=== PATIENT | male | born 1930 | race Caucasian/White ===

== ENCOUNTER 2016-05-07 14:09 | Inpatient (IN) | payer OTHER ==
[~2016-05-07] VITALS: Ht 172.7 cm; Wt 85.3 kg
--- NOTE | ~2016-05-07 | H ---
[facility] [place] [address] HISTORY AND PHYSICAL Name: MARCIA MRAY Room #: 427-P ADM IN M.R.#: [id number] Admission: 05/07/16 Attend Phys: Pelon Naranjo MD Discharge: Date of : 30 Report #: [id number] THIS REPORT FOR: //name// CC: Landy Faria TYPE OF DICTATION: Admission H and P after [id number] encounter, I did see the patient and examined him on the day of admission. CHIEF COMPLAINT: Electrolyte abnormality. HISTORY OF PRESENT ILLNESS: An 86-year-old male with multiple medical problems, was sent by his primary care doctor to the ER because the patient was on excessive diuretics and his electrolyte seems to be very weird like his hypokalemic, hyponatremic, and there is an acute renal failure also. The patient has a history of paroxysmal AFib. He is not sure about that, but he is not on any anticoagulation or anything else for that, but his EKG did show some AFib. The patient denies any chest pain or short of breath. He seems to be very comfortable. No current complaints. REVIEW OF SYSTEMS: Except that mentioned in HPI, all other systems are negative. PAST MEDICAL HISTORY: Includes: 1. Hypertension. 2. Peripheral neuropathy. 3. Hypothyroidism. 4. B12 deficiency. 5. Gout. 6. History of paroxysmal AFib. 7. CKD 3. FAMILY HISTORY: Noncontributory. SOCIAL HISTORY: He is not a smoker, drinker, or drug abuser. SURGICAL HISTORY: There is no surgical history. PHYSICAL EXAMINATION: GENERAL: He is alert, oriented, not in acute distress. VITAL SIGNS: Temperature 36.7, pulse 62, respirations 16, blood pressure 106/59. HEENT: PERRLA. Intact extraocular muscles. No icterus. NECK: Supple, no JVD, no bruit, no thyroid. CHEST: Good air entry in both sides. Normal respiratory effort. CARDIOVASCULAR: Irregular irregularity. No murmur, rub, or gallop. ABDOMEN: Lax, soft, nontender, positive bowel sounds, no organomegaly [address] [address] HISTORY AND PHYSICAL Name: MARCIA MARY Room #: 427-P [place] IN M.R.#: [id number] Admission: 05/07/16 Attend Phys: Pelon Naranjo MD Discharge: Date of : 30 Report #: [id number]. EXTREMITIES: No cyanosis, clubbing, or edema. NEUROLOGIC: Cranial nerves 2-12 are intact. No focal neurological signs. LABORATORY DATA: White count 7.5, hemoglobin 12.9, hematocrit 37.6, platelets 112. Sodium 126, potassium 2.6, chloride 82, carbon dioxide 32, anion gap 12, BUN 84, creatinine 3.3, glucose 123, calcium 10.2, magnesium 2.5. Chest x-ray did show some left lower lobe nodularity ___. EKG did show AFib, but slow rate. ASSESSMENT AND PLAN: 1. Hyponatremia. Sodium is 126, so we are going to admit the patient to telemetry, and in the same time, we are going to give him IV fluids in the form of normal saline and follow his sodium level in the morning. 2. Hypokalemia. His potassium currently is 2.6. I think this is secondary to excessive diuresis. We are going to replace it per protocol. 3. Acute renal failure, most probably acute tubular necrosis. Creatinine is up to 3.3 from baseline of 1.8. We are going to hydrate him and check his kidney function in the morning. 4. History of atrial fibrillation. The patient is currently on AFib, but rate is controlled, so we are going to discuss with him the probability of anticoagulation and his cardiac enzymes will be checked and EKG will be checked for 3 times. 5. Left lower lobe nodule most suspicious of that. We are going to have a CT of the chest and reevaluate the patient. The patient is full code. The patient is going to be on DVT and GI prophylaxis. <ELECTRONICALLY SIGNED> By: Pelon Naranjo MD 05/10/16 1700 1555 [id number] Pelon Naranjo MD /nt
--- NOTE | ~2016-05-07 | HC ---
[facility] [place] [address] CONSULTATION Name: MARCIA MARY Room #: 427-P ADM IN M.R.#: [id number] Admission: 05/07/16 Attend Phys: Pelon Naranjo MD Discharge: Date of : 30 Report #: [id number] THIS REPORT FOR: //name// CC: Pelon Naranjo Martine Faria DATE OF SERVICE: 05/12/2016 TYPE OF REPORT: Cardiology consultation. INDICATION: Atrial fibrillation with a rapid rate. HISTORY OF PRESENT ILLNESS: This is an 86-year-old gentleman who was admitted for electrolyte abnormalities. He had increased lower extremity edema and was started on diuretic therapy. Recently, there was also some episodes of mental status changes. He was treated with electrolyte replacement and fluids upon admission. Initial evaluation revealed multiple bilateral pulmonary nodules. 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 He was noted to have hematochezia, initiating the GI evaluation. On admission, the presenting ECG revealed atrial fibrillation. The patient reports prior history of atrial fibrillation, on Coreg and verapamil. He had been seeing [employer] boss hoeing at [place], [place]. During this hospitalization, his heart rate has been under 100 beats per minute. We are asked to evaluate as he periodically has high ventricular rates up to 130-140 beats per minute. He is not walking or doing any exertion during these episodes. There is no history of angina, dyspnea or congestion. PAST MEDICAL HISTORY: Paroxysmal atrial fibrillation, hypertension, osteoarthritis, chronic kidney disease, edema, gout and hypothyroidism. ALLERGIES: None. MEDICATIONS: At home include aspirin 81, Coreg 3.125 daily, verapamil, Lasix and chlorthalidone, Neurontin and Niaspan. SOCIAL HISTORY: Negative for tobacco use. FAMILY HISTORY: Negative for premature CAD. REVIEW OF SYSTEMS: A full 10-point review of systems performed. Only the pertinent positives and negatives are described in the HPI. PHYSICAL EXAMINATION: VITAL SIGNS: Blood pressure is 130/70, heart rate is 90 beats per minute. GENERAL APPEARANCE: This is an elderly appearing male, in no acute respiratory distress. [facility] [address] [place] [address] CONSULTATION Name: MARCIA MARY Room #: 427-P ADM IN M.R.#: [id number] Admission: 05/07/16 Attend Phys: Pelon Naranjo MD Discharge: Date of : 30 Report #: [id number] HEAD AND EYES: Normocephalic. Sclerae are anicteric. ENT: Oral mucosa moist. NECK: Supple. LUNGS: Clear to auscultation. CARDIAC: Irregularly irregular. S1 and S2 positive. ABDOMEN: Soft. EXTREMITIES: No major joint deformities, trace edema. RADIOLOGICAL DATA: ECG on 03/07/2016 reveals atrial fibrillation. LABORATORY VALUES: TSH is within normal limits. White count is 9.6 and hemoglobin is 10.1. Sodium is 140, BUN is 26 and creatinine is 1.3. ASSESSMENT AND PLAN: 1. Atrial fibrillation with episodes of rapid ventricular rates. The patient has a prior history of atrial fibrillation and this rhythm has been present since his initial admission. The TSH is within normal limits. The plan is to change the beta sumit from Coreg to atenolol for better rate control. He is currently on Cardizem, which will be continued. Long-term anticoagulation is prohibited at this time given his recent history of hematochezia with positive bleeding scan. 2. Hypertension. The blood pressure is stable on the current regimen. 3. Rectal mass with probable metastatic disease, awaiting biopsy results. 4. Hematochezia, hold on anticoagulation. 5. Edema. 6. Tpohd-os-ejtbwyb kidney disease. Thank you for allowing me to participate in the care of your patient. <ELECTRONICALLY SIGNED> By: Skyler Abdul MD 05/13/16 0838 1207 [id number] Skyler Abdul MD /nt
--- NOTE | ~2016-05-07 | 2DMMODE ---
[facility] [place] [address] 2 D/M-MODE ECHOCARDIOGRAM Name: MARCIA MARY Room #: 427-P ADM IN M.R.#: [id number] Admission: 05/07/16 Attend Phys: Pelon Naranjo, Discharge: Date of : 30 Date of Service: 05/13/16 1040 Report #: [id number] THIS REPORT FOR: //name// Transthoracic Echocardiography Ordering physician: Skyler Abdul MD Referring physician: MD Bienvenido Murdock Stephanie B. Shelf Stocker: Britney Garrett Indications/History: Afib. Hx: HTN, Afib BP: 97 / 52 HR: 66bpm Height: 68in Weight: 189.6lb Study data: M-mode, complete 2D, complete spectral Doppler, and color Doppler. Location: Bedside. Routine. Image quality was fair. The study was technically limited due to poor acoustic window availability and restricted patient mobility. Off axis apical windows. 2D measurements Normal Normal LVID ED 47.3mm 36-57 IVS ED 12.3mm 6-11 LVID ES 33.3mm 23-40 LVPW ED 9.4mm 6-11 LA volume index 16-28 AoRoot diam ED 32.4mm 21-37 LVOT diameter 20mm 18-23 Findings: Left ventricle: The cavity size was normal. Wall thickness was normal. Systolic function was normal. The estimated ejection fraction was in the range of 55%. Wall motion was normal. Right ventricle: Poorly visualized. The cavity size was normal. Systolic function was normal. Right atrium: Poorly visualized but appears mildly dilated. Left atrium: The atrium appears mildly dilated. Aortic valve: Structurally normal valve. Mildly sclerotic leaflets. Doppler: There was no stenosis. No regurgitation. Peak velocity: 107.9cm/s (S). Mitral valve: Mildly thickened leaflets . Doppler: There was no evidence for stenosis. Trivial [facility] [address] [place] [address] 2 D/M-MODE ECHOCARDIOGRAM Name: MARCIA MARY Room #: 427-P ADM IN M.R.#: [id number] Admission: 05/07/16 Attend Phys: Pelon Naranjo, Discharge: Date of : 30 Date of Service: 05/13/16 1040 Report #: [id number] regurgitation. Peak E-wave velocity: 110cm/s. Peak gradient: 4.8mm Hg (D). Tricuspid valve: Structurally normal valve. Doppler: There was no evidence for stenosis. Mild-moderate regurgitation. Regurgitant peak velocity: 232.8cm/s. Peak RV-RA gradient: 22mm Hg (S). Pulmonic valve: Structurally normal valve. Doppler: There was no evidence for stenosis. Mild regurgitation. Pericardium: There was no pericardial effusion. Aorta: Aortic root: The aortic root was normal in size. Pulmonary artery: Systolic pressure was estimated to be 32mm Hg. Diastolic function: The study was not technically sufficient to allow evaluation of LV diastolic dysfunction due to atrial fibrillation. Systemic veins: Inferior vena cava: The vessel was normal in size; the respirophasic diameter changes were blunted (< 50%). Conclusions 1. Left ventricle: The cavity size was normal. Wall thickness was normal. Systolic function was normal. The estimated ejection fraction was in the range of 55%. 2. Right atrium: Poorly visualized but appears mildly dilated. 3. Left atrium: The atrium appears mildly dilated. 4. Aortic valve: Structurally normal valve. Mildly sclerotic leaflets. There was no stenosis. 5. Mitral valve: Mildly thickened leaflets . Trivial regurgitation. 6. Tricuspid valve: Mild-moderate regurgitation. 7. Pericardium, extracardiac: There was no pericardial effusion. <ELECTRONICALLY SIGNED> By: Skyler Abdul MD 05/13/16 1135 1040 1135 Skyler Abdul MD /lexx
--- NOTE | ~2016-05-07 | P ---
[facility] [place] [address] PROCEDURE REPORT Name: MARCIA MARY Room #: 427-P [facility] IN M.R.#: [id number] Admission: 05/07/16 Attend Phys: Pelon Naranjo MD Discharge: 05/16/16 Date of : 30 Report #: [id number] THIS REPORT FOR: //name// CC: Pelon Faria MD INPATIENT COLONOSCOPY REPORT BRIEF HISTORY: The patient is an 86-year-old male who presented to [facility], has evidence of rectal bleeding. Bleeding scan was positive in the rectosigmoid area. Also, CT revealed thickening of the rectosigmoid region. In addition, there appeared to be multiple metastatic lesions in his lungs. PREOPERATIVE DIAGNOSIS: Rectal bleeding and abnormal CT. POSTOPERATIVE DIAGNOSES: 1. Partially obstructing circumferential mass lesion, rectum. 2. Flat polyp, hepatic flexure. 3. Moderately severe diverticulosis coli, primarily sigmoid colon. MEDICATIONS: Deep sedation with propofol per anesthesia. SPECIMEN: 1. Biopsies of flat polyp, hepatic flexure. 2. Biopsies of rectal mass. ESTIMATED BLOOD LOSS: 3 mL related to procedure. PROCEDURE: Colonoscopy to cecum with biopsy. FINDINGS: Prior to propofol sedation, procedure of colonoscopy discussed with the patient as well as potential risks and its complications. He indicates he understands and desires to proceed. DESCRIPTION OF PROCEDURE: With the patient in left lateral decubitus position, digital examination was completed which did not reveal any abnormalities other than dark red blood on the examining digit. Subsequently, the Photo [employer] video colonoscope was introduced into the rectum, advanced under direct vision. In the mid rectum, there was an apple core lesion with blood clots within the lumen. Very carefully, I was able to pass the scope through the lumen and proximal to the mass lesion. We were able to advance the scope all the way to the cecum, once I identified the ileocecal valve and the appendiceal orifice. At that point, the scope was slowly withdrawn and careful circumferential views were obtained. The prep was adequate for purpose today. There was no solid material in the colon, but there were some areas of liquid material and some liquid coating on the mucosa. A small lesion could have been overlooked. At [facility] [address] [place] [address] PROCEDURE REPORT Name: MARCIA MARY Room #: 427-P DIS IN M.R.#: [id number] Admission: 05/07/16 Attend Phys: Pelon Naranjo MD Discharge: 05/16/16 Date of : 30 Report #: [id number] the hepatic flexure was an irregular shaped polypoid lesion, it was probably 10-12 mm in maximal length and about 6 mm of maximal width. It was flat and had a benign appearance. Multiple biopsies were obtained. Due to the finding of the lesion in the rectum, I did not see the need to completely remove this lesion. As the scope was withdrawn, no additional mucosal lesions were seen. In the left colon, in particular the sigmoid colon, there was moderately severe diverticular disease without endoscopic evidence of diverticulitis. The scope was drawn back in the rectum and once again the rectal mass lesion was seen. It was very friable, but brisk bleeding was not encountered. It was probably 4-5 cm in length and involved the entire circumference of the lumen. Multiple biopsies were obtained. Distally, the mucosa was normal. Upon retroflexion, no additional lesions were seen. Scope was withdrawn. The patient tolerated the procedure well. On repeat digital examination with the patient fully sedated with marked pressure, I was able to barely reach the distal aspect of this lesion with the examining digit. The patient tolerated the procedure well. DISPOSITION: Unfortunately, the patient has a mass lesion consistent with a rectal cancer. The lesions in the lung are consistent with metastatic disease. We will follow up on biopsies obtained today. Options would include surgical resection. Another option if surgery is felt not to be an option would be stenting of this lesion. We will discuss further with the patient stenting of this lesion. However, bleeding has been an issue and with stenting, would likely continue to be an issue. <ELECTRONICALLY SIGNED> By: Marcia Glez MD 05/18/16 1104 1213 [id number] Marcia Glez MD /nt
--- NOTE | ~2016-05-07 | HC ---
[facility] [place] [address] CONSULTATION Name: MARCIA MARY Room #: 427-P ADM IN M.R.#: [id number] Admission: 05/07/16 Attend Phys: Pelon Naranjo MD Discharge: Date of : 30 Report #: [id number] THIS REPORT FOR: //name// CC: Pelon Khan MD DATE OF SERVICE: 05/11/2016 REASON FOR CONSULT: Rectal mass. HISTORY OF PRESENT ILLNESS: The patient is a very pleasant 86-year-old gentleman who was originally from the [facility], is a retired senior staff accountant, who has about a 2 to 3-week history of feeling poorly, diarrhea, some increased rectal bleeding and had come to the emergency room and there was found to have increasing creatinine about 3, electrolyte abnormalities. On a chest x-ray, he had a lung nodule. Subsequent CAT scan saw that he has bilateral pulmonary masses; also, on a CT abdomen and pelvis, there is rectosigmoid thickening. A bleeding scan suggested bleeding of the area. Recent colonoscopy by Dr. Marcia Glez revealed a partially obstructing circumferential mass lesion in the rectum, also flat polyp in the hepatic flexure and moderate severe diverticulosis coli, primarily in the sigmoid colon. Biopsy is pending at this time. The patient's electrolytes are improving. Creatinine is done to 1.2. Sodium, which was around the mid-120s, is improving. The patient is feeling slightly better. His 2 daughters are present. REVIEW OF SYSTEMS: The patient is not really having headaches. Does have a stitch in his side, muscle cramp. He not had any swallowing troubles. No fevers or chills. Does feel like he gets cold easy. No new breathing difficulties. He is not aware of any new chest pains; no new belly pain, rather some occasional mild cramping. Did have the bleeding in his stool which he thought might have been from diverticula. He had lost about 21 pounds in the last several months. Note that his had from metastatic breast cancer and he had moved here from [place] about December and currently lives in [facility] [place]. No new skin rash. The legs have been slightly swollen, so he had been on diuretics recently. 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 Note that he had laminectomies 40 years ago and 10 years ago with some residual. Also history of hypothyroidism, B12 deficiency, takes oral B12, gout in the past that has not bothered for some time in his ankles, history of atrial fibrillation, history of bilateral hip surgery, also [facility] [address] [place] [address] CONSULTATION Name: MARCIA MARY Room #: 427-P [facility] IN M.R.#: [id number] Admission: 05/07/16 Attend Phys: Pelon Naranjo MD Discharge: Date of : 30 Report #: [id number] tonsillectomy and adenoidectomy as a young person. FAMILY HISTORY: No blood or cancer issues in mother, father, brother, sister, 2 daughters or 1 son. SOCIAL HISTORY: He is originally from [place], [place]. He had gone to school in [place]. His had actually been a college classmate of coach tour driver Jordy Lu who is currently up at [facility]. He had been a bit of a heavy drinker in the past, but probably none for maybe 10 or 15 years and drank beer in the past. No street drugs. I do not think there is any tobacco history. Note that he had some cats at home when they were kids or growing up. ALLERGIES: None. MEDICATIONS: Prior to coming to the hospital included aspirin 81 mg, furosemide 40 mg daily, niacin 1000 mg at bedtime, levothyroxine 0.075 mg daily, carvedilol 3.125 b.i.d., Centrum Silver Ultra Men's 1 daily, fish oil 1000 mg daily, gabapentin 100 mg at bedtime, Lomotil q.i.d. p.r.n., Uloric 80 mg daily, B12 500 mcg daily, also vitamin D3 400 units daily, also had, I think, been on a little bit higher dose of carvedilol early, also chlorthalidone, also had a little bit higher dose of Synthroid and also verapamil 80. PHYSICAL EXAMINATION: VITAL SIGNS: The patient's current height and weight is 5 feet 8 inches which is 172.7 cm, weight 188 pounds which was 85.3 kg; note this is from several days ago. Recent blood pressure is 150/69, O2 sat 100%, respirations 16, pulse 116, temperature 97.9. He has been afebrile. Oxygen saturation is 98% to 100% on room air. NEUROLOGIC: The patient is moving all extremities. He is slightly fuzzy, but mostly tired. Face looks symmetrical. His mood, he is pleasant, he is able to answer questions and smiles when he talks about his cat in the past and also growing up and his who from metastatic breast cancer. LUNGS: Sound like they have clear symmetric respiratory changes without any wheezes or rhonchi. HEART: Regular rate. Rhythm is slightly irregular. LYMPHATICS: No enlarged lymph nodes in the supraclavicular, cervical, axillary or inguinal region. Note the patient is ticklish in the armpits. ABDOMEN: Slightly protuberant. No masses, nontender. No ecchymosis. No rebound. EXTREMITIES: Do have some trace edema. LABORATORY TESTS: Here show that on admission sodium is 126 which had been 135 in March, currently back up to 143; potassium had been 2.6, is up to 4.1; creatinine had been 3.3, is currently down to 1.2. Transaminases include AST, ALT are normal. Albumin 3.4 day after admission. INR 1.1 day after admission. White blood count currently 6.2, hemoglobin 11.1, MCV 98, RDW is 17.5; platelets [facility] [address] [place] [address] CONSULTATION Name: MARCIA MARY Room #: 427-P ADM IN M.R.#: [id number] Admission: 05/07/16 Attend Phys: Pelon Naranjo MD Discharge: Date of : 30 Report #: [id number] were 118 in March, 112 on admission, 91 two days ago, 68 yesterday; differential nonacute, few extra monocytes. CEA several days ago 7.2, PSA 0.2. IMAGING STUDIES: Here included a CT chest on May 07 with finding of diffusely scattered bilateral indeterminate pulmonary nodules, largest in the lingula measuring 13 mm, nonspecific, could be related to cancer. CT abdomen and pelvis done also without contrast saw an area of marked wall thickening of the rectosigmoid junction with colon cancer being the diagnosis of exclusion, also multiple pulmonary nodules again seen, possible small hypodense lesion in the left lobe of the liver, difficult to confirm, also cholelithiasis. Nuclear medicine bleeding scan had revealed evidence for lower GI bleed in the left colon and rectosigmoid junction. DISCUSSION: 1. Discussed with 2 daughters and the patient that at this time we are suspicious this is rectosigmoid cancer, but we do not know the surgeon; I do not see a note that they have been about to see the patient yet. The main thing will be try to figure out whether the patient has disease that he wishes to pursue treatment of, especially if he has lung disease. While it should be mentioned with his cognitive changes, we may wish to consider MRI of the head once his kidney function is slightly better. Treatment options would include palliative care with hospice, could also include palliative surgery which might either include a diverting colostomy, either temporary permanent with resection given his advanced disease that might not be very tenable; also could consider radiation therapy either by itself or with chemotherapy. The issues we will need to worry about would be how near-obstructing this lesion is and also if he has continued bleeding. It may be that therapy even if does not help him live long that his quality of life left behind might be better if we can palliate or prevent bleeding or obstruction. We will talk with family and surgeon over the next several days. 2. Questionable lung metastasis. We will wait to see issues as above. 3. Low platelets. I talked with family and the patient; he has no prior knowledge. We will try to get records from Dr. Faria We will check B12, folate, iron, peripheral smear, platelet, antibody and follow serial counts. 4. Rectal bleeding. Monitor symptoms and hemoglobin. 5. Upzzs-mj-mjeukrm renal insufficiency, appears to be slightly better with hydration and holding of diuretics; creatinine down to 1.2. 6. Electrolyte abnormalities, improved. 7. Atrial fibrillation, rate control per others. 8. Protein-calorie malnutrition, per others. 9. Hypothyroidism, we will check TSH. 10. Gout, medications per others. 11. Hypertension, currently holding medications. 12. Peripheral neuropathy evidently due to past back issues, mild; continue gabapentin as needed. 13. Prognosis: Would worry that this older gentleman may have difficult [facility] [address] [place] [address] CONSULTATION Name: MARCIA MARY Room #: 427-P ADM IN M.R.#: [id number] Admission: 05/07/16 Attend Phys: Pelon Naranjo MD Discharge: Date of : 30 Report #: [id number] tolerating therapy. It is also difficult to know how much he wants to do such as his has and he lives by himself. We will get to know the patient and his family better over the next several days. <ELECTRONICALLY SIGNED> By: Meng Du MD 05/15/16 0719 0920 2219 Meng Du MD /nt
--- NOTE | ~2016-05-07 | HC ---
[facility] [place] [address] CONSULTATION Name: MARCIA MARY Room #: 427-P ADM IN M.R.#: [id number] Admission: 05/07/16 Attend Phys: Pelon Naranjo MD Discharge: Date of : 30 Report #: [id number] THIS REPORT FOR: //name// CC: Pelon Naranjo Martine Faria The patient is an 86-year-old white male who was admitted with electrolyte abnormalities, acute renal failure, noted to have a sodium of 126, potassium 2.6, and acute renal failure with creatinine up to 3.3 from a baseline of 1.8. He is showing improvement as far as his renal function with decrease in his creatinine and improvement in sodium up to 133, although his potassium with still low and is being supplemented. He is noted to be quite weak with a significant decline from his premorbid status. His work up also revealed left lower lobe nodules, multiple nodules, suspect malignancy. Pulmonary has been consulted. We are seeing him in rehabilitation medicine consultation. PAST MEDICAL HISTORY: Includes hypertension, peripheral neuropathy, hypothyroidism, B12 deficiency, gout, history of paroxysmal atrial fibrillation, and chronic kidney disease stage 3. FAMILY HISTORY: Noncontributory. PAST SURGICAL HISTORY: No surgical history. HABITS: No history of tobacco or ETOH abuse. SOCIAL HISTORY: Noted to live alone in an apartment [facility] apparently assisted living facility. No steps. Noted to be a . Does have an involved daughter. Apparently utilized a cane to get around. He also has his 's prior four wheeled walker, although it sounds like he has never been trained to actually use it. REVIEW OF SYSTEMS: Did not offer any current complaints of chest pain, shortness of breath, abdominal discomfort. No focal extremity pain complaints. The main issue is complaining of being overall weak and retired and somewhat frustrated with his condition. PHYSICAL EXAMINATION: GENERAL: He is an 86-year-old white male, in no obvious distress. The patient is alert and pleasant. VITAL SIGNS: Last recorded temperature is 97.6, pulse 85, respirations 16, blood pressure 129/57. HEENT: Appeared to be benign. NEUROLOGIC: Cranial nerves are grossly intact. Facies are symmetric. EXTREMITIES: Upper extremities functional range of motion, strength is a grade 4-/5. He is able to demonstrate good security developer handrails of the walker. Lower extremities, no focal calf swelling. Functional range of motion, strength is a grade 4- to 3+/5. He does need at least min if not mod assist for sit to stand, utilizing a gait belt. He tends to have significantly forward flexed posture and needs cues to try to straighten up. He still has [address] [address] CONSULTATION Name: MARCIA MARY Room #: 427-P [facility] IN M.R.#: [id number] Admission: 05/07/16 Attend Phys: Pelon Naranjo MD Discharge: Date of : 30 Report #: [id number] significant forward flex posture, but will improve when he focused on trying to stand further upright. He is ambulating up to 50 feet min assist with a front-wheeled walker. ASSESSMENT: An 86-year-old white male with the following problem list: 1. Medical complexity with generalized debilitation. 2. Multiple electrolyte abnormalities. 3. Acute renal failure superimposed on chronic renal insufficiency. 4. Left lower lobe nodules. Multiple nodules are noted, question of possible malignancy. Pulmonary has been consulted. 5. History of atrial fibrillation, recurrent, rate controlled. 6. History of peripheral neuropathy. PLAN: Pulmonary to consult. Occupational therapy to evaluate. We need to further clarify whether the patient is indeed at an assisted living facility level or whether he was in independent living apartment. We will need to assess his tolerance for therapies. We will be glad to follow along with you regarding his rehab therapy needs. <ELECTRONICALLY SIGNED> By: Dennis Diaz MD 05/13/16 0958 1450 0039 Dennis Diaz MD /nt
--- NOTE | ~2016-05-07 | S ---
[facility] [place] [address] SURGICAL PATH RPT PROCEDURE Name: MARCIA MARY Room #: 427-P DIS IN M.R.#: [id number] Admission: 05/07/16 Date of : 30 Discharge: 05/16/16 Report #: [id number] Path Case #: [id number] PATHOLOGY REPORT COLLECTION DATE: 05/14/2016 RECEIVED DATE: 05/15/2016 SUBMITTING PHYS: Dr. Alvin Burger OTHER PHYS: Dr. Pelon Naranjo SPECIMEN(S) RECEIVED: A.Lung biopsy * * * * * * * * * * * * FINAL DIAGNOSIS: Lung, needle core biopsy: - Alveolated lung parenchyma along with a few medium sized vessels. - Negative for malignancy. (IUV:mgr; d/t: 05/16/16) PATHOLOGIST: Maria Alejandra Fuchs M.D. REPORT ELECTRONICALLY SIGNED BY: Maria Alejandra Fuchs M.D. DATE/TIME: 05/16/2016 16:43 * * * * * * * * * * * * GROSS PATHOLOGY: The specimen is received in formalin, labeled "Marcia Mary and lung bx." Received is a 0.4 x 0.2 x 0.1 cm aggregate of blood tinged, aragon, rubbery, and irregular soft tissue fragments. The specimen is entirely submitted in cassette A1. (TTL; 05/15/2016) CLINICAL HISTORY: None given INITIAL CPT CODE(S): A; 41843 Professional services performed by [facility] at [facility] [address], [place] [address] Technical services performed by [facility] at [address] [place] [id number]. [facility] [address] [place] [address] SURGICAL PATH RPT PROCEDURE Name: MARCIA MARY Room #: 427-P DIS IN M.R.#: [id number] Admission: 05/07/16 Date of : 30 Discharge: 05/16/16 Report #: [id number] Path Case #: [id number] [address] PHONE: [phone] DIRECTOR: Warren Ashford M.D. * * * END OF REPORT * * *
--- NOTE | ~2016-05-07 | HC ---
[facility] [place] [address] CONSULTATION Name: MARCIA MARY Room #: 427-P ADM IN M.R.#: [id number] Admission: 05/07/16 Attend Phys: Pelon Naranjo MD Discharge: Date of : 30 Report #: [id number] THIS REPORT FOR: //name// CC: Pelon [facility] JOSIAS Khan MD REASON FOR CONSULTATION: Rectal mass. HISTORY OF PRESENT ILLNESS: This is a very friendly 86-year-old male patient, who resides at [facility]. He had some difficulty with lower extremity edema for which he saw Dr. Martine Faria, his primary care physician. She placed him on diuretics to treat this and since that time, the patient has had some difficulty with confusion, decreased mental status and evidently, intermittent rectal bleeding (which he attributes to hemorrhage, treated with preparation H). After being seen again by Dr. Faria, the patient was found to have electrolyte abnormalities. Due to this and his decreased mental status, it was recommended that the patient be seen in an Emergency Room. After his admission, a chest x-ray revealed left lung base nodules which was followed by a CT of the chest revealing bilateral pulmonary nodules, suspicious for metastatic disease. Pulmonology was consulted and ordered a CEA (elevated at 7.2 with a normal of 0 to 4.7). Hemoccult was also positive. This prompted a CT of the abdomen and pelvis which revealed transmural thickening of the rectosigmoid junction circumferentially. In addition to this, there was a hypodense lesion of the left lobe of the liver. Gastroenterology was consulted and the patient had more difficulty of bleeding. A bleeding scan was ordered, which was positive for bleeding near the rectosigmoid junction. A colonoscopy was performed yesterday, whereby a rectal mass was identified. The mass itself was friable and was approximately 4-5 cm in length. In addition to this, a cecal polyp was biopsied. Biopsies of the mass itself were also taken and are currently pending. I have been asked to see the patient for further evaluation and treatment. It should be noted that the patient is recently in the past 5-6 months. His of metastatic breast cancer and he has recently removed to the [facility] from the [place], [place] after her . The patient denies significant abdominal pain or further rectal bleeding at this time. The patient was somnolent during the interview and the subjective portion of this is taken from both medical record and from the patient's multiple family members that were present. PAST MEDICAL HISTORY: Significant for hypertension, paroxysmal atrial fibrillation, stage III CKD, hypothyroidism, gout, and B12 deficiency. PAST SURGICAL HISTORY: Denies. CURRENT MEDICATIONS: Includes aspirin 81 mg, Coreg, multivitamin, Neurontin, [facility] [address] [place] [address] CONSULTATION Name: MARCIA MARY Room #: 427-P ADM IN M.R.#: [id number] Admission: 05/07/16 Attend Phys: Pelon Naranjo MD Discharge: Date of : 30 Report #: [id number] Lasix, Lomotil, Niaspan, Synthroid, Uloric, vitamin B12 and vitamin D3. ALLERGIES: No known drug allergies. FAMILY HISTORY: Reviewed and noncontributory to this hospitalization. SOCIAL HISTORY: The patient is recently and lives at [facility]. He is accompanied by multiple family members. Denies any use of tobacco, alcohol or illicit drugs. REVIEW OF SYSTEMS: As per history of present illness. GENERAL: The patient has had some recent weight loss, although he is uncertain of the amount. Denies fever or chills. HEENT: Denies changes in taste, vision, hearing, or smell. RESPIRATORY: Denies shortness of breath, COPD or asthma. CARDIOVASCULAR: Denies chest pain or palpitations. GASTROINTESTINAL: As per history of present illness. Denies abdominal pain, nausea or vomiting. Has had difficulty with bright red blood per rectum, attributed to hemorrhage over the past several weeks, treated with preparation H. His most recent colonoscopy before yesterday was 10 years ago and was reportedly "clean." GENITOURINARY: Denies dysuria, urgency, increased urinary frequency or hematuria. MUSCULOSKELETAL: Denies myalgia, arthralgia or arthritis. NEUROLOGIC: Denies headaches, numbness or tingling. PSYCHIATRIC: Denies depression, anxiety, or suicidal ideations. SKIN AND INTEGUMENTARY: Denies any new skin lesions, rashes, or moles. ENDOCRINE: Denies polydipsia, polyuria, heat or cold intolerance. HEMATOLOGIC: Denies easy bleeding or bruising. Reports anemia (see above). All other review of systems is negative. PHYSICAL EXAMINATION: VITAL SIGNS: Temperature 98.1, blood pressure 141/59, pulse 78, respirations 16. GENERAL: This is a friendly 86-year-old male patient in no acute distress. He is accompanied by 2 daughters, son-in-law and 2 grandchildren. HEENT: Atraumatic, normocephalic with moist mucosal membranes. Oropharynx is clear. He has no scleral icterus. Wears glasses. NECK: Supple, no appreciable lymphadenopathy. Trachea is midline. CHEST: Clear bilaterally. No crackles or wheezes. CARDIOVASCULAR: Regular rate and rhythm, S1, S2. ABDOMEN: Soft, nontender, nondistended with normoactive bowel tones. He has no rebound or guarding. No palpable masses, no appreciable hernias. GENITOURINARY: Normal external male genitalia. EXTREMITIES: No clubbing, cyanosis or edema. NEUROLOGICAL: Cranial nerves 2-12 grossly intact. [facility] [address] [place] [address] CONSULTATION Name: MARCIA MARY Room #: 427-P ADM IN [facility].#: [id number] Admission: 05/07/16 Attend Phys: Pelon Naranjo MD Discharge: Date of : 30 Report #: [id number] PSYCHIATRIC: Normal mood and affect, but somewhat somnolent. SKIN/INTEGUMENTARY: No acute inflammatory changes, rashes or lesions are present. LABORATORY DATA: CBC from today shows a white blood cell count of 6.2, hemoglobin 11.1, hematocrit 33.5 and platelets 68. His hemoglobin from last night was 12.0. Basic metabolic profile shows sodium of 144, potassium 4.6, chloride 109, CO2 25, BUN 25, creatinine 1.2 (2.5 on May 08) and glucose 81. CEA was elevated at 7.2; PSA was normal at 0.2. RADIOLOGIC STUDIES: As described above including the chest x-ray, chest CT and CT abdomen and pelvis. The CT scan also showed cholelithiasis. The bleeding scan was performed on 05/08/2016 and the colonoscopy was performed yesterday. IMPRESSION AND PLAN: This is an 86-year-old male patient recently with a history of hypertension, paroxysmal atrial fibrillation (not on anticoagulation) stage III CKD, hypothyroidism, gout, and B12 deficiency, who has a circumferential rectal mass that is not obstructing. Dr. Glez was able to advance the colonoscope beyond the 4-5 cm long lesion. He likely has metastatic rectal cancer given his CT findings of multiple bilateral pulmonary nodules as well as possible nodule in the left lobe of the liver. I spent 65 minutes interviewing and examining the patient as well as discussing with his family the pathophysiology and natural history of metastatic rectal cancer. We then discussed the treatment alternatives as follows (from least invasive to most invassive): 1. Do nothing. This would allow the lesion to grow and may fully obstruct or continue to bleed. The family has not had a significant discussion about this since the passage of the patient's . 2. Possibility for radiation therapy. We will need to discuss this further with Dr. Gay. May need to further discuss with radiation oncology. While this may slow the growth of the mass, it may not affect its propensity for bleeding. 3. Similarly, a covered permanent stent (placed by GI) is an alternative. This too may not affect hemorrhage from the lesion. It may be possible with both options #1, #2, and #3 that interventional radiology could embolize the lesion for hemostasis if necessary. 4. The most invasive option would be for resection of the mass within end descending colostomy. The risks, benefits, and expectations of this were discussed in detail with the family. The biopsy results are pending. The risk of biopsy of the pulmonary nodules outweigh the benefit of doing so given the number of nodules present and the likelihood that this represents metastatic disease, especially given his elevated CEA level. The patient's family would like to gather as much information as possible before making a decision. Fortunately, the [facility] [address] [place] [address] CONSULTATION Name: MARCIA MARY Room #: 427-P ADM IN M.R.#: [id number] Admission: 05/07/16 Attend Phys: Pelon Naranjo MD Discharge: Date of : 30 Report #: [id number] mass is not obstructing at this time. The window for being able to stent the lesion is diminishing as the mass grows over time. We will await further discussion with Dr. Grant and biopsy results. I sincerely appreciate the opportunity to participate in the care of this patient and will leave further recommendations and orders in the electronic medical record as appropriate. Thank you very much. <ELECTRONICALLY SIGNED> By: Neo Singleton MD, FACS 05/12/16 1020 1734 0919 Neo Singleton MD, FACS /nt
--- NOTE | ~2016-05-07 | HC ---
[facility] [place] [address] CONSULTATION Name: MARCIA MARY Room #: 427-P ADM IN M.R.#: [id number] Admission: 05/07/16 Attend Phys: Pelon Naranjo MD Discharge: Date of : 30 Report #: [id number] THIS REPORT FOR: //name// CC: Pelon Khan MD DATE OF SERVICE: 05/08/2016 He is a patient of Dr. Naranjo and Dr. Keo Khan. CHIEF COMPLAINT: This is a very pleasant 86-year-old white male that I was asked to see on a stat basis because of sudden onset of painless hematochezia. The patient states that he has been having small volume hematochezia intermittently for quite some time and he has attributed it to hemorrhoids in general. He says his last colonoscopy was more than 10 years ago and he did have several polyps removed at that time in [facility]. He does not remember exactly how long ago it was, but it was at least 10 years. He has not had a followup colonoscopy since that time. In addition, he complains of food not tasting right. He has had weight loss going from a previous weight of 209 down to 188 pounds. Last month, his of metastatic breast cancer and he is still quite tearful about this. Understandably, they were for 52 years, so he may be not eating well just because of the grief process right now. I did speak with the patient's daughter, Viviana, and she says that he has had a history of diarrhea ever since he moved down here to [place] from [facility] and she does not know how long he had diarrhea before that. PAST MEDICAL HISTORY: Significant for hypertension, hyperlipidemia, hypothyroidism. He had a history of gout. He has a history for arthritis and spinal cyanosis. He has chronic renal failure. He had peripheral edema recently and was treated with some diuretics. He has an electrolyte imbalance with potassium of 2.6. PAST SURGICAL HISTORY: Significant for bilateral hip replacements. He has had a tonsillectomy and adenoidectomy when he was 6 years old. ALLERGIES: No known drug allergies. MEDICATIONS: Prior to admission included aspirin 81 mg a day, Coreg 3.125 mg b.i.d., vitamin D3, he takes 5 tabs so 2000 units daily, vitamin B12 500 mcg orally daily, Lomotil q.i.d. p.r.n. for diarrhea, fish oil, Uloric, Lasix, Neurontin, Synthroid, Centrum Silver, Ultra Man, and Niaspan. SOCIAL HISTORY: The patient has a history of heavy alcohol use in the past. He [facility] [address] [place] [address] CONSULTATION Name: MARCIA MARY Room #: 427-P [facility] IN M.R.#: [id number] Admission: 05/07/16 Attend Phys: Pelon Naranjo MD Discharge: Date of : 30 Report #: [id number] drinks beer regularly after work. He is a CPA. He does not smoke. He has never had a blood transfusion. FAMILY HISTORY: Negative for colon polyps, colon cancer, Crohn's disease and ulcerative colitis. REVIEW OF SYSTEMS: He denies any dysphagia, odynophagia, gastroesophageal reflux, hiatal hernia, peptic ulcer disease, nausea or vomiting. His weight has gone from 209 pounds down to 188 pounds over a prolonged period. He denies any change in bowel habits, but he does chronic diarrhea apparently for several months, uncertain etiology. He has a history of colon polyps on colonoscopy done greater than 10 years ago. He has had intermittent small volume hematochezia that was attributed to a hemorrhoid. He denies any abdominal pain. He denies any jaundice, hepatitis, cholelithiasis, cholecystitis or pancreatitis. He has never had any liver problems. SIGNIFICANT LABORATORY DATA ON ADMISSION: His sodium was 126, up to 133 now and his potassium has remained low at 2.6, chloride today is 92, CO2 is 31, anion gap 10, BUN 69, creatinine is 2.5. His liver enzymes are normal or low, magnesium is 2.5, albumin is 3.4, GFR is 25. INR is pending. His white count is 6.3, hemoglobin 12.3, indices are all normal. RDW 16.7, platelet count is 91,000. Urinalysis CEA and PSA are all pending. Stool was heme positive. The patient has had several radiological studies. First was a chest x-ray that revealed vague nodular areas on the left lung base, uncertain etiology. A CT scan of the chest was done then that showed multiple indeterminate pulmonary nodules scattered throughout the lungs bilaterally up to 1.3 cm in size within the lingula. This was thought this might be metastatic disease. There was no pneumonia. He has some cyst in his right kidney. He had a noncontrast CT of the abdomen done that again showed the pulmonary nodules possibly a liver nodule. It is a noncontrasted CT as his creatinine is 3 on admission. There was a 12 mm hypodense lesion in the left lobe of the liver near the falciform ligament. There are gallstones. There is a focal area of eccentric marked wall thickening in the rectosigmoid junction along the sigmoid diverticulosis, multiple pulmonary nodules were seen and he is currently in the nuclear medicine scanner for GI bleed scan. IMPRESSION: 1. Acute painless hematochezia, uncertain etiology, possibly diverticular in origin, because he does have documented sigmoid diverticulosis; however, he also has a sigmoid mass on CT scan with possible pulmonary metastasis. 2. Chronic diarrhea for several months. 3. History of colon polyps on colonoscopy done greater than 10 years ago. 4. Recent weight loss and loss of appetite. This may be related to his 's recent with metastatic breast cancer. 5. Hypertension. 6. Hyperlipidemia. [facility] [address] [place] [address] CONSULTATION Name: MARCIA MARY Room #: 427-P [facility] IN M.R.#: [id number] Admission: 05/07/16 Attend Phys: Pelon Naranjo MD Discharge: Date of : 30 Report #: [id number] 7. Hypothyroidism. 8. History of gout. 9. Arthritis and spinal stenosis. 10. Chronic renal failure. 11. Hypokalemia. 12. Thrombocytopenia. He has platelet count in the 90s. 13. Peripheral edema. The patient was recently started on diuretics for this and then developed some electrolyte abnormalities. 14. Status post bilateral hip replacements and tonsillectomy and adenoidectomy. 15. Cholelithiasis. My recommendations are as follows: He appears to be stable, now that his hemoglobin has actually gone up at 5:30 to over 12 grams. He was 11.1 before that. We are going to get a stat GI bleeding scan. He has been typed and screened for 2 units of packed cells just in case we need to transfuse him. We will monitor his H and H every 6 hours through the night. I am going to ask him to take GoLYTELY prep in preparation for a colonoscopy in the morning. I have discussed the CT scan findings with his daughter, Viviana, as well as plans for the colonoscopy in the morning. If a colon mass in the sigmoid is confirmed, we will check a CEA level. He may need outpatient PET scan at some point if mass is confirmed in the sigmoid as well. If the mass is nearly obstructing, the patient may need to have surgical resection of the sigmoid lesion or at least a diverting colostomy. Thank you very much once again for allowing me to participate in his care, Dr. Naranjo and Dr. Khan. <ELECTRONICALLY SIGNED> By: Stephanie Saldana DO 05/09/16 1342 [id number] Stephanie Saldana DO /nt
--- NOTE | ~2016-05-07 | S ---
[facility] [place] [address] [place] [address] SURGICAL PATH RPT PROCEDURE Name: MARCIA MARY Room #: 427-P ADM IN M.R.#: [id number] Admission: 05/07/16 Date of : 30 Discharge: Report #: [id number] Path Case #: [id number] PATHOLOGY REPORT COLLECTION DATE: 05/09/2016 RECEIVED DATE: 05/09/2016 SUBMITTING PHYS: Dr. Marcia Glez OTHER PHYS: Dr. Pelon Faria SPECIMEN(S) RECEIVED: A.Bx polyp at hepatic flexure B.Bxs rectal mass * * * * * * * * * * * * FINAL DIAGNOSIS: A. Colonic mucosa "biopsy polyp at hepatic flexure": - Fragments of tubular adenoma. - There is no evidence of high grade dysplasia or malignancy. B. Colonic mucosa "biopsy rectal mass": - Superficial fragments with high grade dysplasia suspicious for microinvasion. See comment. COMMENT: Fragments of inflamed and ulcerated mucosa with high grade dysplasia, suspicious for microinvasion. This case was also reviewed by Dr. Nell Perez. Nurse Practioner Viviana Gonzalez was informed of the diagnosis on 05/13/2016 at 5pm. (SHA:anu; d/t: 05/13/2016) PATHOLOGIST: Lamont Dumont M.D. REPORT ELECTRONICALLY SIGNED BY: Lamont Dumont M.D. DATE/TIME: 05/13/2016 17:07 * * * * * * * * * * * * GROSS PATHOLOGY: A. Received in formalin labeled "Marcia Mary, biopsy polyp at hepatic flexure," are two segments of aragon soft tissue measuring 0.7 x 0.4 x 0.1 cm in aggregate dimensions and ranging from 0.2 to 0.7 cm in maximum dimension. The specimen is submitted entirely in cassette A1. B. Received in formalin labeled "Marcia Mary, biopsies rectal mass," are five segments of aragon soft tissue measuring 1.5 x 1.2 x 0.2 cm in aggregate dimensions and ranging from 0.4 to 0.8 cm in maximum dimension. The specimen is submitted entirely in cassette B1. (CAA; 05/09/2016) [facility] [place] [address] [place] [address] SURGICAL PATH RPT PROCEDURE Name: MARCIA MARY Room #: 427-P ADM IN M.R.#: [id number] Admission: 05/07/16 Date of : 30 Discharge: Report #: [id number] Path Case #: [id number] CLINICAL HISTORY: Rectal bleeding INITIAL CPT CODE(S): A; 38806 B; 49986 Professional services performed by [facility] at [facility] [address] [place] [address] Technical services performed by [facility] at [address] [place] [address], [address], [place] [address]. [facility] [address] [address] PHONE: [phone] DIRECTOR: Warren Ashford M.D. * * * END OF REPORT * * *
--- NOTE | ~2016-05-07 | EKG ---
[address] [address] ELECTROCARDIOGRAM REPORT Name: MARCIA MARY Room #: 427-P ADM IN M.R.#: [id number] Admission: 05/07/16 Attend Phys: Pelon Naranjo MD Discharge: Date of : 30 Report #: [id number] THIS REPORT FOR: //name// [facility] ED Test Date: 2016-05-07 Test Time: 14:39:51 Pat Name: MARCIA MARY Department: Room: [facility] Gender: M Electro Winning Operator: ANGIE : 1930 Requested By: Landy Marcos Order Number: [id number] MD: Wil Harding Measurements Intervals [place] Rate: 45 P: [place]: QRS: -20 QRSD: 108 T: 82 QT: 528 QTc: 457 Interpretive Statements Atrial fibrillation Borderline left axis deviation Borderline repolarization abnormality No previous ECG available for comparison Electronically Signed On 05-09-2016 10:55:07 [employer] FI[employer] TECHNICIAN by Wil Harding [email or web address] <ELECTRONICALLY SIGNED> By: Wil Harding MD 05/09/16 1055 1439 1439 Wil Harding MD /ARTURO
--- NOTE | ~2016-05-07 | HC ---
[facility] [place] [address] [place] [address] CONSULTATION Name: MARCIA MARY Room #: 427-P ADM IN M.R.#: [id number] Admission: 05/07/16 Attend Phys: Pelon Naranjo MD Discharge: Date of : 30 Report #: [id number] THIS REPORT FOR: //name// CC: Pelon Faria PRIMARY CARE PHYSICIAN: Martine Faria M.D. REFERRING PHYSICIAN: Pelon Naranjo M.D. REASON FOR REFERRAL: Bilateral lung nodules. HISTORY OF PRESENT ILLNESS: The patient is an 86-year-old white male who presents to the Emergency Room with abnormal laboratory data. Admitting chest x-ray shows lung nodule. A pulmonary consultation was requested. The patient is under the care of Dr. Faria. Recently, he was undergoing medical evaluation. He was complaining of edema. Diuretics was given. A laboratory data performed recently showed a creatinine of 2.7, platelets of 133,000, sodium 125, potassium 2.9. For that reason, the patient was referred to the Emergency Room. Family also notes confusion over the last few weeks. 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 Currently, he has no complaints. Denies any headache, chest pain, dyspnea, cough, hemoptysis, nausea, vomiting or diarrhea. SOCIAL HISTORY: He is a lifetime nonsmoker. He has worked primarily in the office in accounting. Otherwise, no recent history of night sweats or chills, weight loss. PAST MEDICAL HISTORY: Remarkable for hypertension, hypothyroidism, gout, chronic kidney disease, paroxysmal atrial fibrillation, peripheral neuropathy. PAST SURGICAL HISTORY: Was unremarkable. ALLERGIES: None noted. MEDICATIONS: His medication on admission revealed his aspirin, Coreg, fish oil, Neurontin, Lasix, Lomotil, Niacin, Synthroid, Cymbalta. Recent discontinued medications include verapamil, hydrocodone and chlorthalidone. FAMILY HISTORY: Noncontributory. [facility] [address] [place] [address] CONSULTATION Name: MARCIA MARY Room #: 427-P [facility] IN M.R.#: [id number] Admission: 05/07/16 Attend Phys: Pelon Naranjo MD Discharge: Date of : 30 Report #: [id number] SOCIAL HISTORY: As mentioned above, his just due to a metastatic breast CA this November, he is a nonsmoker, he does not drink. He is retired mainly from office work. Otherwise, denies any occupational exposure to ____. REVIEW OF SYSTEMS: As mentioned above, otherwise 10-point system review negative. PHYSICAL EXAMINATION: GENERAL: He is awake, alert, in no apparent distress. VITAL SIGNS: Temperature is 97.3 degrees Fahrenheit, pulse is 72, respiratory rate is 16, blood pressure 114/60 mmHg, saturation 99%. HEENT: Normocephalic, atraumatic. NECK: Supple without any lymphadenopathy or thyromegaly. CHEST: Breath sounds clear without any rales or wheezes. CARDIOVASCULAR: Normal S1, S2. No murmurs or gallop. There is no JVD. There is no carotid bruit. Pulses are 2+/4+ bilaterally. ABDOMEN: Soft, nontender, no organomegaly or masses felt. EXTREMITIES: There is no edema, cyanosis or clubbing. LABORATORY: Chest x-ray and CT of chest revealed multiple bilateral indeterminate pulmonary nodules that are all less than 2 cm in diameter, largest nodule measuring 13 mm in diameter. Mediastinum is otherwise unremarkable. Upper abdomen is unremarkable. Sodium 126, potassium 2.6, chloride 82, CO2 is 32, BUN is 84, creatinine is 3.3. WBC 7500, hemoglobin is 12.9, platelets are normal. IMPRESSION: 1. Bilateral lung nodules in this 86-year-old white male. These appears to be noncalcified. All less than 2 cm in diameter. Etiology is unclear, but suspect systemic process. Neoplasm is likely cause. 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 Granulomatous process is felt to be less likely. 2. Acute kidney injury/chronic kidney disease. 3. Electrolyte abnormalities including hyponatremia, hypokalemia. 4. Hypertension. 5. Hypothyroidism. 6. Gout. 7. Peripheral neuropathy. RECOMMENDATION: ____. We will obtain a CT abdomen and pelvis, PSA, CEA level. If these are nondiagnostic, I would recommend a PET scan imaging, which can be performed as an outpatient. Would defer CT ____ biopsy for now pending PET scan study. [address] [address] CONSULTATION Name: MARCIA MARY Room #: 427-P ADM IN M.R.#: [id number] Admission: 05/07/16 Attend Phys: Pelon Naranjo MD Discharge: Date of : 30 Report #: [id number] This was discussed in detail with the patient's daughter. Thank you for the consultation. <ELECTRONICALLY SIGNED> By: Keo Khan MD 05/09/16 1628 1721 0302 Keo Khan MD /nt
[~2016-05-07 14:09] MED LIST: ASPIR 8181 MG PO; CENTRUM SILVER1 EAC2 PO; CHLORTHALIDONE25 MG PO; COREG6.25 MG PO; FISH OIL 1,001000 M2 PO; GABAPENTIN 100100 MG PO; HYDROCODONE-APA1 TA1 PO; KEFLEX500 MG PO; LASIX 20 MG TAB20 MG PO; LEVOTHYROXINE0.05 MG PO; LOMOTIL TABLET1 EACH PO; NIASPAN ER 101000 M1 PO; ULORIC80 MG PO; VERAPAMIL ER240 M1 PO; VITAMIN B-12500 MCG PO; VITAMIN D3400 UNIT PO
[2016-05-07 14:21] VITALS: BP 106/59
[2016-05-07 14:56] LABS: HEMATOCRIT 37.6 % (42.0-52.0); HEMOGLOBIN 12.9 gm/dL (14.0-18.0); MCH 32.2 pg (26.0-34.0); MCHC 34.2 % (28.0-37.0); MCV 94.2 fL (80.0-100.0); PLATELET COUNT 112 thou/uL (150-400); RBC 3.99 mil/uL (4.50-6.00); RDW 17.1 % (10.5-14.5); WBC 7.5 thou/uL (4.0-11.0)
[2016-05-07 14:57] LABS: MANUAL DIFF YES
[2016-05-07 15:04] LABS: CALCIUM 10.2 mg/dL (8.5-10.1); CREATININE 3.3 mg/dL (0.6-1.3)
[2016-05-07 15:12] LABS: ABSOLUTE NEUTROPHILS 4.1 thou/uL (1.4-8.2); ANISOCYTOSIS 1+; TOTAL CELL COUNT 100
[2016-05-07 15:13] LABS: POIKILOCYTOSIS SLIGHT; POLYCHROMASIA OCCASIONAL
[2016-05-07 15:14] LABS: POTASSIUM 2.6 mmol/L (3.5-5.1)
[2016-05-07 17:52] VITALS: BP 124/46
[2016-05-07] MEDS ORDERED: LEVOTHYROXIN0.075 MG PO (17:57)
[2016-05-07] MEDS ORDERED: COREG3.125 MG PO (18:00)
[2016-05-07 20:00] VITALS: BP 100/46
[2016-05-08 04:00] VITALS: BP 109/54
[2016-05-08 04:56] LABS: HEMATOCRIT 32.9 % (42.0-52.0); MCH 32.1 pg (26.0-34.0); MCHC 33.4 % (28.0-37.0); MCV 96.3 fL (80.0-100.0); RBC 3.41 mil/uL (4.50-6.00); RDW 16.7 % (10.5-14.5); WBC 6.3 thou/uL (4.0-11.0)
[2016-05-08 05:12] LABS: ALBUMIN 3.4 g/dL (3.4-5.0); CALCIUM 8.9 mg/dL (8.5-10.1); CREATININE 2.5 mg/dL (0.6-1.3); TOTAL BILIRUBIN 0.7 mg/dL (<0.1-1.0); TOTAL PROTEIN 6.3 g/dL (6.4-8.2)
[2016-05-08 05:16] LABS: POTASSIUM 2.6 mmol/L (3.5-5.1)
[2016-05-08 07:31] VITALS: BP 129/57
[2016-05-08 15:53] VITALS: BP 114/60
[2016-05-08 18:05] LABS: HEMATOCRIT 36.8 % (42.0-52.0); HEMOGLOBIN 12.3 gm/dL (14.0-18.0)
[2016-05-08 20:00] VITALS: BP 137/83
[2016-05-08 21:13] LABS: HEMATOCRIT 35.3 % (42.0-52.0); HEMOGLOBIN 11.9 gm/dL (14.0-18.0)
[2016-05-08 21:27] LABS: INR 1.1; PROTIME 10.9 Seconds (9.3-11.4)
[2016-05-08 23:37] VITALS: BP 137/83
[2016-05-08 23:40] LABS: HEMATOCRIT 36.1 % (42.0-52.0)
[2016-05-09 02:06] LABS: PSA 0.2 ng/mL (0.0-4.0)
[2016-05-09 04:00] VITALS: BP 132/92
[2016-05-09 07:56] VITALS: BP 141/90
[2016-05-09 13:10] VITALS: BP 117/62
[2016-05-09 16:12] VITALS: BP 146/80
[2016-05-09 20:00] VITALS: BP 132/63
[2016-05-10 04:00] VITALS: BP 137/92
[2016-05-10 04:39] LABS: ABSOLUTE NEUTROPHILS 3.6 thou/uL (1.4-8.2); BASOPHILS 0.3 % (0.0-2.0); EOSINOPHILS 2.3 % (0.0-3.0); HEMATOCRIT 33.5 % (42.0-52.0); HEMOGLOBIN 11.1 gm/dL (14.0-18.0); LYMPHOCYTES 26.9 % (24.0-44.0); MANUAL DIFF NO; MCH 32.5 pg (26.0-34.0); MCHC 33.1 % (28.0-37.0); MONOCYTES 12.1 % (1.0-8.0); PLATELET COUNT 68 thou/uL (150-400); POLYS 58.4 % (36.0-66.0); RBC 3.41 mil/uL (4.50-6.00); RDW 17.5 % (10.5-14.5); WBC 6.2 thou/uL (4.0-11.0)
[2016-05-10 04:46] LABS: CALCIUM 8.7 mg/dL (8.5-10.1); CREATININE 1.2 mg/dL (0.6-1.3); POTASSIUM 4.6 mmol/L (3.5-5.1)
[2016-05-10 08:21] VITALS: BP 141/59
[2016-05-10 09:09] LABS: CEA 7.2 ng/mL (0.0-4.7)
[2016-05-10 17:34] VITALS: BP 138/73
[2016-05-10 18:21] VITALS: BP 147/76
[2016-05-10 20:00] VITALS: BP 132/70
[2016-05-11 03:34] VITALS: BP 167/98
[2016-05-11 05:22] LABS: CALCIUM 8.8 mg/dL (8.5-10.1); CREATININE 1.2 mg/dL (0.6-1.3); POTASSIUM 4.1 mmol/L (3.5-5.1)
[2016-05-11 07:57] VITALS: BP 150/69
[2016-05-11 17:06] VITALS: BP 141/71
[2016-05-11 20:00] VITALS: BP 115/54
[2016-05-12 02:38] LABS: ABSOLUTE NEUTROPHILS 6.9 thou/uL (1.4-8.2); BASOPHILS 0.2 % (0.0-2.0); EOSINOPHILS 0.8 % (0.0-3.0); HEMATOCRIT 30.8 % (42.0-52.0); HEMOGLOBIN 10.1 gm/dL (14.0-18.0); LYMPHOCYTES 16.3 % (24.0-44.0); MCH 32.4 pg (26.0-34.0); MCHC 32.9 % (28.0-37.0); MCV 98.4 fL (80.0-100.0); MONOCYTES 11.2 % (1.0-8.0); PLATELET COUNT 56 thou/uL (150-400); POLYS 71.5 % (36.0-66.0); RBC 3.13 mil/uL (4.50-6.00); RDW 17.8 % (10.5-14.5); WBC 9.6 thou/uL (4.0-11.0)
[2016-05-12 02:45] LABS: MANUAL DIFF NO
[2016-05-12 02:51] LABS: CALCIUM 8.4 mg/dL (8.5-10.1); CREATININE 1.3 mg/dL (0.6-1.3); MAGNESIUM 1.5 mg/dL (1.8-2.4); POTASSIUM 4.3 mmol/L (3.5-5.1)
[2016-05-12 03:48] LABS: PLATELET ESTIMATE DECREASED
[2016-05-12 04:00] VITALS: BP 134/80
[2016-05-12 07:40] VITALS: BP 128/73
[2016-05-12 10:10] LABS: % SATURATION 16 % (15-55); IRON 42 ug/dL (38-169); TIBC 266 ug/dL (250-450); UIBC 224 ug/dL (111-343)
[2016-05-12 13:10] LABS: FERRITIN 122 ng/mL (30-400); FOLIC ACID 15.2 ng/mL (>3.0)
[2016-05-12 15:13] VITALS: BP 104/65
[2016-05-12 19:53] VITALS: BP 140/62
[2016-05-13 03:39] VITALS: BP 114/67
[2016-05-13 07:31] VITALS: BP 100/57
[2016-05-13 15:28] VITALS: BP 120/50
[2016-05-13 21:00] VITALS: BP 126/62
[2016-05-14 04:30] VITALS: BP 119/57
[2016-05-14 07:35] VITALS: BP 103/56
[2016-05-14 10:50] LABS: BASOPHILS 0.1 % (0.0-2.0); EOSINOPHILS 1.3 % (0.0-3.0); HEMOGLOBIN 10.3 gm/dL (14.0-18.0); LYMPHOCYTES 27.8 % (24.0-44.0); MCH 32.6 pg (26.0-34.0); MCHC 33.4 % (28.0-37.0); MCV 97.6 fL (80.0-100.0); MONOCYTES 8.5 % (1.0-8.0); POLYS 62.3 % (36.0-66.0); RBC 3.17 mil/uL (4.50-6.00); RDW 18.3 % (10.5-14.5); WBC 6.4 thou/uL (4.0-11.0)
[2016-05-14 10:58] LABS: MANUAL DIFF NO; PLATELET COUNT 70 thou/uL (150-400)
[2016-05-14 12:30] VITALS: BP 103/56; BP 110/54
[2016-05-14 16:47] VITALS: BP 110/54
[2016-05-14 19:55] VITALS: BP 119/65
[2016-05-15 04:07] VITALS: BP 122/60
[2016-05-15 07:48] VITALS: BP 123/56
[2016-05-15 08:42] LABS: ABSOLUTE NEUTROPHILS 3.8 thou/uL (1.4-8.2); BASOPHILS 0.3 % (0.0-2.0); EOSINOPHILS 0.9 % (0.0-3.0); HEMATOCRIT 26.8 % (42.0-52.0); LYMPHOCYTES 25.5 % (24.0-44.0); MCH 32.6 pg (26.0-34.0); MCHC 33.5 % (28.0-37.0); MCV 97.3 fL (80.0-100.0); MONOCYTES 11.1 % (1.0-8.0); POLYS 62.2 % (36.0-66.0); RBC 2.76 mil/uL (4.50-6.00); WBC 6.1 thou/uL (4.0-11.0)
[2016-05-15 08:43] LABS: MANUAL DIFF NO; PLATELET COUNT 71 thou/uL (150-400)
[2016-05-15 08:52] LABS: CALCIUM 8.8 mg/dL (8.5-10.1); CREATININE 1.4 mg/dL (0.6-1.3); POTASSIUM 4.2 mmol/L (3.5-5.1)
[2016-05-15 15:42] VITALS: BP 104/63
[2016-05-16] VITALS (8 sets, daily range): BP systolic 109–118; BP diastolic 58–64
[2016-05-16] MEDS ORDERED: HYDROCODON-ACE1 EAC7 PO (12:19)
[2016-05-16] MEDS ORDERED: ATENOLOL 25MG T25 M1 PO (12:19)
== END 2016-05-16 13:55 | disposition hospice, inpatient (51) | DRG 377 ==
LOC: ER 14:09 → 4E 15:20 → EROBS 15:20 → 4E 17:36
PROVIDERS: Emergency Medicine; Hospitalist; Internal Medicine Endocrinology, Diabetes & Metabolism; Internal Medicine Gastroenterology; Internal Medicine Hematology & Oncology; Internal Medicine Pulmonary Disease; Nurse Practitioner Family; Specialist
PROC: 0DBL8ZX Excision of Transverse Colon, Via Natural or Artificial Opening Endoscopic, Diagnostic (ICD-10-PCS; principal; 2016-05-09)
PROC: 0DBP8ZX Excision of Rectum, Via Natural or Artificial Opening Endoscopic, Diagnostic (ICD-10-PCS; principal; 2016-05-09)
PROC: 0BBL3ZX Excision of Left Lung, Percutaneous Approach, Diagnostic (ICD-10-PCS; principal; 2016-05-09)
DX: K57.91 Diverticulosis of intestine, part unspecified, without perforation or abscess with bleeding (principal); N17.0 Acute kidney failure with tubular necrosis; E87.1 Hypo-osmolality and hyponatremia; E46 Unspecified protein-calorie malnutrition; J93.9 Pneumothorax, unspecified; I48.0 Paroxysmal atrial fibrillation; G62.9 Polyneuropathy, unspecified; E03.9 Hypothyroidism, unspecified; M10.9 Gout, unspecified; E87.6 Hypokalemia; R91.1 Solitary pulmonary nodule; E78.5 Hyperlipidemia, unspecified; M19.90 Unspecified osteoarthritis, unspecified site; Z96.643 Presence of artificial hip joint, bilateral; K52.9 Noninfective gastroenteritis and colitis, unspecified; M48.00 Spinal stenosis, site unspecified; D69.6 Thrombocytopenia, unspecified; N18.3 Chronic kidney disease, stage 3 (moderate); I12.9 Hypertensive chronic kidney disease with stage 1 through stage 4 chronic kidney disease, or unspecified chronic kidney disease; K80.20 Calculus of gallbladder without cholecystitis without obstruction; E53.8 Deficiency of other specified B group vitamins; K62.9 Disease of anus and rectum, unspecified; R91.8 Other nonspecific abnormal finding of lung field; Z79.899 Other long term (current) drug therapy; Z68.28 Body mass index [BMI] 28.0-28.9, adult; Z86.010 Personal history of colon polyps
CPT/HCPCS: 10183; 62110

== ENCOUNTER 2016-05-18 20:13 | Emergency (ER) | payer OTHER ==
[~2016-05-18] VITALS: Ht 172.7 cm; Wt 77.1 kg
--- NOTE | ~2016-05-18 | EKG ---
[address] [place] [address] ELECTROCARDIOGRAM REPORT Name: MARCIA MARY Room #: DEP KWASI Santos#: [id number] Admission: 05/18/16 Attend Phys: Discharge: 05/19/16 Date of : 30 Report #: [id number] THIS REPORT FOR: //name// [facility] ED Test Date: 2016-05-18 Test Time: 21:35:25 Pat Name: MARCIA MARY Department: Room: Gender: M Core Shaper Sides: ANGIE : 1930 Requested By: Juliana Rubin Order Number: [id number] MD: Wil Harding Measurements Intervals [place] Rate: 63 P: [place]: QRS: 47 QRSD: 100 T: 36 QT: 397 QTc: 407 Interpretive Statements Sinus Rhythm Low voltage, precordial leads Compared to ECG 05/07/2016 14:39:51 Low QRS voltage now present Electronically Signed On 05-19-2016 8:10:19 SALES ENABLEMENT LEAD by Wil Harding [email or web address] <ELECTRONICALLY SIGNED> By: Wil Harding MD 05/19/16 0810 34 34 Wil Harding MD /ARTURO
[~2016-05-18 20:13] MED LIST changes: +ATENOLOL 25MG T25 M1 PO; +COREG3.125 MG PO; +HYDROCODON-ACE1 EAC7 PO; +LEVOTHYROXIN0.075 MG PO
[2016-05-18 22:06] LABS: ABSOLUTE NEUTROPHILS 4.1 thou/uL (1.4-8.2); BASOPHILS 0.3 % (0.0-2.0); EOSINOPHILS 1.2 % (0.0-3.0); HEMATOCRIT 26.3 % (42.0-52.0); LYMPHOCYTES 25.1 % (24.0-44.0); MCH 33.5 pg (26.0-34.0); MCHC 34.3 % (28.0-37.0); MCV 97.8 fL (80.0-100.0); MONOCYTES 11.6 % (1.0-8.0); PLATELET COUNT 120 thou/uL (150-400); POLYS 61.8 % (36.0-66.0); RBC 2.69 mil/uL (4.50-6.00); RDW 17.5 % (10.5-14.5); WBC 6.6 thou/uL (4.0-11.0)
[2016-05-18 22:07] LABS: MANUAL DIFF NO
[2016-05-18 22:14] LABS: ANION GAP 9 mmol/L (7-16); BUN 44 mg/dL (7-18); CALCIUM 9.4 mg/dL (8.5-10.1); CHLORIDE 106 mmol/L (98-107); CO2 29 mmol/L (21-32); CREATININE 1.6 mg/dL (0.6-1.3); GLUCOSE 123 mg/dL (70-99); POTASSIUM 4.7 mmol/L (3.5-5.1); SODIUM 144 mmol/L (136-145)
[2016-05-18 22:22] LABS: TROPONIN-I < 0.04 ng/mL (<0.04-0.07)
[2016-05-18 22:27] LABS: APTT 27.5 Seconds (24.5-32.8); INR 1.1; PROTIME 11.4 Seconds (9.3-11.4)
== END 2016-05-19 00:51 | disposition home or self-care (01) ==
LOC: ER 20:13
PROVIDERS: Emergency Medicine
DX: H53.462 Homonymous bilateral field defects, left side (principal); I10 Essential (primary) hypertension; E03.9 Hypothyroidism, unspecified; I48.91 Unspecified atrial fibrillation; G90.8 Other disorders of autonomic nervous system